=== PATIENT | male | born 1955 | race Caucasian/White ===

== ENCOUNTER → 2017-06-04 | Outpatient (CLI) | payer BC ==
--- NOTE | 2017-06-05 08:37 | CT ---
EXAMINATION TYPE: CT chest wo con DATE OF EXAM: 06/04/2017 COMPARISON: NONE HISTORY: Enlarged lymph nodes CT DLP: 873 mGycm. Automated Exposure Control for Dose Reduction was Utilized. TECHNIQUE: CT scan of the thorax is performed without IV contrast. IV contrast could not be given du e to abnormal lab values. FINDINGS: LUNGS: The lungs are grossly clear, there is no concerning parenchymal mass or nodule identified. T here is no pleural effusion or pneumothorax seen. The tracheobronchial tree is patent. MEDIASTINUM: Lack of IV contrast is noted to limit evaluation for mediastinal and especially hilar ad enopathy. There are no definitive greater than 1 cm noncalcified hilar or mediastinal lymph nodes. T here are prominent but subcentimeter calcified anterior superior mediastinal lymph nodes anterior to the aortic arch. No cardiomegaly is seen. There is small pericardial effusion anteriorly Ascending ao rta measures up to 3.5 cm in diameter. Right and left pulmonary arteries measure up to 2.6 cm in diam eter. OTHER: Small degree of bilateral gynecomastia is noted. Massive splenomegaly is present measuring 19. 5 cm long axis axial image 78. There is partial visualization of 3.7 cm low dense lesion laterally ri ght kidney likely reflecting simple cyst. Dependent density in gallbladder is consistent with small s tones and/or gallbladder sludge. IMPRESSION: Prominent Splenomegaly partially imaged. No definitive suspicious adenopathy in the thora x.
== END | disposition home or self-care (01) ==
LOC: RADCTMAIN 17:39
PROVIDERS: ATTEND Internal Medicine Hematology & Oncology
DX: R59.0 Localized enlarged lymph nodes (principal); Z88.8 Allergy status to other drugs, medicaments and biological substances
CPT/HCPCS: 36415; 71250; 82565; 84520

== ENCOUNTER 2017-10-06 12:26 | Emergency (ER) | payer BC ==
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
[2017-10-06 15:21] LABS: Anisocytosis Moderate; Basophils % (A) 0 %; Eosinophils # (A) 0.1 k/uL (0-0.7); Eosinophils % (A) 1 %; HCT 35.9 % (39.0-53.0); HGB 10.9 gm/dL (13.0-17.5); Hypochromasia Moderate; Lymphocytes # (A) 0.3 k/uL (1.0-4.8); Lymphocytes % (A) 3 %; MCH 24.6 pg (25.0-35.0); MCHC 30.2 g/dL (31.0-37.0); MCV 81.3 fL (80.0-100.0); Mean Platelet Volume 6.8; Monocytes # (A) 0.7 k/uL (0-1.0); Monocytes % (A) 6 %; Neutrophils # (A) 9.9 k/uL (1.3-7.7); Neutrophils % (A) 89 %; Platelet Count 276 k/uL (150-450); RBC 4.42 m/uL (4.30-5.90); WBC 11.1 k/uL (3.8-10.6)
[2017-10-06 15:29] LABS: Anion Gap 9 mmol/L; Blood Urea Nitrogen 47 mg/dL (9-20); Calcium 9.8 mg/dL (8.4-10.2); Carbon Dioxide 18 mmol/L (22-30); Chloride 113 mmol/L (98-107); Creatine Kinase <20 U/L (55-170); Glucose 87 mg/dL (74-99); Magnesium 2.1 mg/dL (1.6-2.3); Potassium 5.9 mmol/L (3.5-5.1); Sodium 140 mmol/L (137-145)
[2017-10-06] MEDS ORDERED: SODIUM CHLORIDE 0.9% 1,000 ML IV ONE (15:53)
[2017-10-06] MEDS ORDERED: DEXTROSE 50%-WATER 50 ML SYRINGE IVP STA (15:54)
[2017-10-06] MEDS ORDERED: INSULIN REGULAR 100 UNIT/ML VIAL IV ONE (15:54)
[2017-10-06 15:56] LABS: Poikilocytosis (M) Present
[2017-10-06 17:46] LABS: Glucose,Whole Blood 46 mg/dL (75-99)
[2017-10-06 18:04] LABS: Glucose,Whole Blood 58 mg/dL (75-99)
[2017-10-06 18:43] LABS: Glucose,Whole Blood 84 mg/dL (75-99)
[2017-10-06 18:47] VITALS: BP 144/66; PULSE 74; RESP 18
[2017-10-06 19:01] LABS: Calcium 9.4 mg/dL (8.4-10.2); Potassium 5.1 mmol/L (3.5-5.1)
[2017-10-06 19:17] VITALS: TEMP 98
== END 2017-10-06 19:16 | disposition home or self-care (01) ==
LOC: EC 12:26
DX: E87.5 Hyperkalemia (principal); M21.372 Foot drop, left foot; R61 Generalized hyperhidrosis; R25.8 Other abnormal involuntary movements; R59.0 Localized enlarged lymph nodes; R26.9 Unspecified abnormalities of gait and mobility; L90.5 Scar conditions and fibrosis of skin; R20.8 Other disturbances of skin sensation; E11.40 Type 2 diabetes mellitus with diabetic neuropathy, unspecified; Z79.4 Long term (current) use of insulin; Z79.899 Other long term (current) drug therapy; Z88.8 Allergy status to other drugs, medicaments and biological substances; Z85.72 Personal history of non-Hodgkin lymphomas; Z92.21 Personal history of antineoplastic chemotherapy; Z98.890 Other specified postprocedural states
CPT/HCPCS: 36415; 80048; 82550; 83605; 83735; 85025; 93005; 96361; 96374; 99283

== ENCOUNTER 2017-10-09 23:58 | Inpatient (IN) | payer BC ==
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
[2017-10-10 01:16] LABS: Anisocytosis Moderate; Basophils % (A) 0 %; Eosinophils # (A) 0.1 k/uL (0-0.7); Eosinophils % (A) 2 %; HCT 31.4 % (39.0-53.0); HGB 9.9 gm/dL (13.0-17.5); Hypochromasia Moderate; Lymphocytes # (A) 0.4 k/uL (1.0-4.8); Lymphocytes % (A) 6 %; MCH 25.3 pg (25.0-35.0); MCHC 31.6 g/dL (31.0-37.0); Mean Platelet Volume 7.2; Microcytosis Slight; Monocytes # (A) 0.5 k/uL (0-1.0); Monocytes % (A) 7 %; Neutrophils # (A) 5.9 k/uL (1.3-7.7); Neutrophils % (A) 83 %; Platelet Count 205 k/uL (150-450); RBC 3.92 m/uL (4.30-5.90); RDW 20.9 % (11.5-15.5); WBC 7.1 k/uL (3.8-10.6)
[2017-10-10] MEDS ORDERED: INSULIN REGULAR 100 UNIT/ML VIAL IV ONE ×2 (01:27→11:39)
[2017-10-10] MEDS ORDERED: DEXTROSE 50%-WATER 50 ML SYRINGE IVP ONE (01:27)
[2017-10-10] MEDS ORDERED: SODIUM CHLORIDE 0.9% 1,000 ML IV STA ×2 (01:27→05:17)
[2017-10-10] MEDS ORDERED: NALOXONE 0.4 MG/ML 1 ML VIAL IV PRN (01:39)
[2017-10-10 02:22] LABS: Glucose,Whole Blood 161 mg/dL (75-99)
[2017-10-10] MEDS ORDERED: ALLOPURINOL 300 MG TAB PO SCH (09:00)
[2017-10-10] MEDS: FENOFIBRATE 54 MG TAB PO SCH (09:33)
[2017-10-10] MEDS ORDERED: SODIUM BICARB 8.4% 50 ML SYR (1 MEQ/ML) IV ONE (11:39)
[2017-10-10] MEDS ORDERED: DEXTROSE 50%-WATER 50 ML SYRINGE IVP STA ×2 (11:41→18:02)
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
[2017-10-10 12:21] LABS: Appearance,Urine Clear (Clear); Bilirubin,Urine Negative (Negative); Blood,Urine Negative (Negative); Color,Urine Colorless; Glucose,Urine (UA) Negative (Negative); Ketones,Urine Negative (Negative); Leukocyte Esterase,Urine Negative (Negative); Nitrite,Urine Negative (Negative); PH, Urine 5.5 (5.0-8.0); Protein,Urine Negative (Negative); Specific Gravity,Urine 1.007 (1.001-1.035); Urobilinogen,Urine <2.0 mg/dL (<2.0)
[2017-10-10] MEDS: DEXTROSE 5% IN WATER 1,000 ML with SODIUM BICARB (1 MEQ/ML) 150 ML IV SCH (12:22)
[2017-10-10 12:30] LABS: Glucose,Whole Blood 105 mg/dL (75-99)
[2017-10-10 14:16] LABS: Glucose,Whole Blood 151 mg/dL (75-99)
--- NOTE | 2017-10-10 15:57 | US ---
EXAMINATION TYPE: US kidneys/renal and bladder DATE OF EXAM: 10/10/2017 COMPARISON: NONE CLINICAL HISTORY: danitza. Hx of lymphoma EXAM MEASUREMENTS: Right Kidney: 11.2 x 5.6 x 5.6 cm Left Kidney: 13.1 x 5.7 x 5.7 cm Right Kidney: Hydronephrosis noted = 2.4 cm Left Kidney: dilated renal pelvis = 0.9 cm Bladder: Sonolucent Bilateral Jets seen: Yes Normal Post Void Residual: Not done in portable environment. IMPRESSION: 1. Bilateral hydronephrosis, right more so than left. No etiology is identified. 2. Superior pole right renal cyst
[2017-10-10 16:03] LABS: Iron Saturation 15.66 (15.00-50.00)
[2017-10-10] MEDS ORDERED: SODIUM POLYSTYRENE SULFONATE 15 GM/60 ML BOTTLE PO STA (16:29)
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
[2017-10-10 17:51] LABS: Uric Acid 3.6 mg/dL (3.5-8.5)
[2017-10-10] MEDS ORDERED: INSULIN REGULAR 100 UNIT/ML VIAL SQ ONE (18:03)
[2017-10-10] MEDS ORDERED: SODIUM BICARB 8.4% 50 ML VIAL (1 MEQ/ML) IV STA (18:06)
[2017-10-10] MEDS ORDERED: CALCIUM CHLORIDE 100 MG/ML 10 ML SYRINGE IVP STA (18:08)
[2017-10-10] MEDS ORDERED: SODIUM BICARB 8.4% 50 ML SYR (1 MEQ/ML) IV STA (18:10)
[2017-10-10] MEDS ORDERED: CALCIUM CHLORIDE IV ONE (18:15)
[2017-10-10] MEDS ORDERED: SODIUM CHLORIDE 0.9% IV ONE (18:15)
[2017-10-10 19:00] LABS: Glucose,Whole Blood 190 mg/dL (75-99)
[2017-10-10] MEDS: ACYCLOVIR 200 MG CAP PO SCH (20:23)
[2017-10-10 20:31] LABS: Glucose,Whole Blood 73 mg/dL (75-99)
[2017-10-11] MEDS: DEXTROSE 5% IN WATER 1,000 ML with SODIUM BICARB (1 MEQ/ML) 150 ML IV SCH (05:26)
[2017-10-11 07:08] LABS: Glucose,Whole Blood 132 mg/dL (75-99)
[2017-10-11 07:39] LABS: Potassium 6.7 mmol/L (3.5-5.1)
[2017-10-11 08:06] LABS: Calcium 9.3 mg/dL (8.4-10.2); Magnesium 1.9 mg/dL (1.6-2.3)
[2017-10-11 08:26] LABS: Potassium 6.2 mmol/L (3.5-5.1)
[2017-10-11] MEDS: FENOFIBRATE 54 MG TAB PO SCH (08:42)
[2017-10-11] MEDS: ACYCLOVIR 200 MG CAP PO SCH ×2 (08:42→19:52)
[2017-10-11] MEDS: ATORVASTATIN 80 MG TAB PO SCH (08:42)
[2017-10-11] MEDS: ALLOPURINOL 300 MG TAB PO SCH (08:42)
[2017-10-11] MEDS ORDERED: SODIUM POLYSTYRENE SULFONATE 15 GM/60 ML BOTTLE PO STA ×2 (08:54)
[2017-10-11] MEDS ORDERED: INSULIN REGULAR 100 UNIT/ML VIAL IV ONE (09:04)
[2017-10-11] MEDS ORDERED: DEXTROSE 50%-WATER 50 ML SYRINGE IVP STA (09:04)
[2017-10-11] MEDS ORDERED: ALBUTEROL NEBULIZED 2.5 MG/3 ML INHALATION STA (09:07)
--- NOTE | 2017-10-11 09:37 | P.PN ---
Subjective Patient is seen in follow-up for acute kidney injury. Creatinine was 2.3 on admission and is down to 1.53 today with IV hydration. Hyperkalemia did improve with medical management and is up to 6.2 this morning. Admits to good urine output. No vomiting or diarrhea. Denies chest pain or shortness of breath. Vital signs are stable. General: The patient appeared well nourished and normally developed. HEENT: Head exam is unremarkable. Neck is without jugular venous distension. LUNGS: Lungs are clear to auscultation and percussion. Breath sounds decreased. HEART: Rate and Rhythm are regular. First and second heart sounds normal. No murmurs, rubs or gallops. ABDOMEN: Abdominal exam reveals normal bowel sounds. Non-tender and non- distended. No evidence of peritonitis. EXTREMITITES: No clubbing, cyanosis, or edema. Objective - Vital Signs Vital signs: Vital Signs Temp 97.7 F 10/11/17 05:00 Pulse 68 10/11/17 05:00 Resp 16 10/11/17 05:00 BP 99/61 10/11/17 05:00 Pulse Ox 99 10/11/17 05:00 Intake & Output 10/10/17 10/11/17 10/11/17 18:59 06:59 18:59 Other: Voiding Method Toilet Toilet # Voids 1 - Labs CBC & Chem 7: 10/10/17 00:40 10/11/17 07:12 Labs: Abnormal Lab Results - Last 24 Hours (Table) 10/10/17 10/10/17 10/10/17 Range/Units 00:40 04:16 12:15 Potassium 6.7 H* (3.5-5.1) mmol/L Chloride (98-107) mmol/L BUN (9-20) mg/dL Creatinine (0.66-1.25) mg/dL Glucose (74-99) mg/dL POC Glucose (mg/dL) 105 H (75-99) mg/dL Iron 52 L (65-175) ug/dL Ferritin 344.4 H (22.0-322.0) ng/mL 10/10/17 10/10/17 10/10/17 Range/Units 14:05 16:25 18:58 Potassium 7.0 H* (3.5-5.1) mmol/L Chloride (98-107) mmol/L BUN (9-20) mg/dL Creatinine (0.66-1.25) mg/dL Glucose (74-99) mg/dL POC Glucose (mg/dL) 151 H 190 H (75-99) mg/dL Iron (65-175) ug/dL Ferritin (22.0-322.0) ng/mL 10/10/17 10/10/17 10/11/17 Range/Units 20:26 21:05 07:07 Potassium 5.3 H (3.5-5.1) mmol/L Chloride (98-107) mmol/L BUN (9-20) mg/dL Creatinine (0.66-1.25) mg/dL Glucose (74-99) mg/dL POC Glucose (mg/dL) 73 L 132 H (75-99) mg/dL Iron (65-175) ug/dL Ferritin (22.0-322.0) ng/mL 10/11/17 Range/Units 07:12 Potassium 6.2 H* (3.5-5.1) mmol/L Chloride 111 H (98-107) mmol/L BUN 41 H (9-20) mg/dL Creatinine 1.53 H (0.66-1.25) mg/dL Glucose 107 H (74-99) mg/dL POC Glucose (mg/dL) (75-99) mg/dL Iron (65-175) ug/dL Ferritin (22.0-322.0) ng/mL Assessment and Plan Plan: Assessment: 1. Nonoliguric acute kidney injury mostly prerenal from lisinopril and Bactrim which will impair creatinine secretion raising its level. Creatinine 2.3 on admission and down to 1.5-3. He is noted to have bilateral hydronephrosis. Urinalysis is benign. 2. Hyperkalemia secondary to metabolic acidosis, lisinopril and Bactrim. Also component of obstructive uropathy. 3. Metabolic acidosis secondary to acute kidney injury. Improved. 4. Lymphoma maintained on chemotherapy at [facility]. 5. Insulin-dependent diabetes mellitus. 6. Anemia. Iron deficiency noted. Plan: Discontinue bicarbonate drip. Start normal saline at 75 mL an hour. Patient received Kayexalate this morning. I will give him 10 units of IV insulin with amp of D50 as well as 10 mg of nebulized albuterol now. Repeat potassium level this afternoon. Hold Bactrim and lisinopril for now. Ferrlecit 125 mg IV daily for 3 days. First dose today. Low potassium diet. Decreased allopurinol dose to 300 mg daily. Consult urology for hydronephrosis.
[2017-10-11 09:53] LABS: Glucose,Whole Blood 180 mg/dL (75-99)
[2017-10-11] MEDS: SODIUM CHLORIDE 0.9% 1,000 ML IV SCH (09:57)
[2017-10-11] MEDS: SODIUM FERRIC GLUCONAT-SUCROSE 125 MG in SODIUM CHLORIDE 0.9% 100 ML IVPB SCH (10:19)
[2017-10-11] MEDS: SODIUM BICARBONATE TAB 650 MG TAB PO SCH ×2 (10:19→19:53)
--- NOTE | 2017-10-11 11:17 | P.PN ---
Subjective Patient is admitted with hyperkalemia secondary to acute renal failure, Bactrim , lisinopril. Patient did not have bowel movement yesterday because of which is a potassium didn't come down. Patient will be given another dose of kayexalate along with albuterol and insulin. Patient has bilateral hydronephrosis which is not new but the senior environmental engineer recommending a urology consultation urology will be consulted. Patient does not have any significant uric acid in the blood patient may have mild competent of tumor lysis syndrome. Constitutional: Denied any fatigue denied any fever. Cardio vascular: denied any chest pain, palpitations Gastrointestinal denied any nausea vomiting Pulmonary: Denied any shortness of breath cough Neurologic denied any new focal deficits Objective - Vital Signs Vital signs: Vital Signs Temp 97.7 F 10/11/17 05:00 Pulse 68 10/11/17 05:00 Resp 16 10/11/17 05:00 BP 99/61 10/11/17 05:00 Pulse Ox 99 10/11/17 05:00 Intake & Output 10/10/17 10/11/17 10/11/17 18:59 06:59 18:59 Other: Voiding Method Toilet Toilet # Voids 1 - Exam PHYSICAL EXAMINATION: GENERAL: The patient is alert and oriented x3, not in any acute distress. Well developed, well nourished. HEENT: Pupils are round and equally reacting to light. EOMI. No scleral icterus. No conjunctival pallor. Normocephalic, atraumatic. No pharyngeal erythema. No thyromegaly. CARDIOVASCULAR: S1 and S2 present. No murmurs, rubs, or gallops. PULMONARY: Chest is clear to auscultation, no wheezing or crackles. ABDOMEN: Soft, nontender, nondistended, normoactive bowel sounds. No palpable organomegaly. MUSCULOSKELETAL: No joint swelling or deformity. EXTREMITIES: No cyanosis, clubbing, or pedal edema. NEUROLOGICAL: Gross neurological examination did not reveal any focal deficits. SKIN: No rashes. - Labs CBC & Chem 7: 10/10/17 00:40 10/11/17 07:12 Labs: Abnormal Lab Results - Last 24 Hours (Table) 10/10/17 10/10/17 10/10/17 Range/Units 00:40 04:16 12:15 Potassium 6.7 H* (3.5-5.1) mmol/L Chloride (98-107) mmol/L BUN (9-20) mg/dL Creatinine (0.66-1.25) mg/dL Glucose (74-99) mg/dL POC Glucose (mg/dL) 105 H (75-99) mg/dL Iron 52 L (65-175) ug/dL Ferritin 344.4 H (22.0-322.0) ng/mL 10/10/17 10/10/17 10/10/17 Range/Units 14:05 16:25 18:58 Potassium 7.0 H* (3.5-5.1) mmol/L Chloride (98-107) mmol/L BUN (9-20) mg/dL Creatinine (0.66-1.25) mg/dL Glucose (74-99) mg/dL POC Glucose (mg/dL) 151 H 190 H (75-99) mg/dL Iron (65-175) ug/dL Ferritin (22.0-322.0) ng/mL 10/10/17 10/10/17 10/11/17 Range/Units 20:26 21:05 07:07 Potassium 5.3 H (3.5-5.1) mmol/L Chloride (98-107) mmol/L BUN (9-20) mg/dL Creatinine (0.66-1.25) mg/dL Glucose (74-99) mg/dL POC Glucose (mg/dL) 73 L 132 H (75-99) mg/dL Iron (65-175) ug/dL Ferritin (22.0-322.0) ng/mL 10/11/17 10/11/17 Range/Units 07:12 09:49 Potassium 6.2 H* (3.5-5.1) mmol/L Chloride 111 H (98-107) mmol/L BUN 41 H (9-20) mg/dL Creatinine 1.53 H (0.66-1.25) mg/dL Glucose 107 H (74-99) mg/dL POC Glucose (mg/dL) 180 H (75-99) mg/dL Iron (65-175) ug/dL Ferritin (22.0-322.0) ng/mL Assessment and Plan Plan: -Hyperkalemia: Multifactorial secondary to Bactrim, lisinopril, acute renal failure, uric acid levels are within normal limits. Patient is on IV bicarbonate. -Renal failure: Secondary to above-mentioned medications and it is improving continue with the IV bicarbonate drip. -Bilateral hydronephrosis urology consultation. -Hyperlipidemia - non-Hodgkin's lymphoma is receiving chemotherapy with the Rituxan and bendamustine
[2017-10-11 11:27] LABS: Glucose,Whole Blood 48 mg/dL (75-99)
[2017-10-11 11:46] LABS: Glucose,Whole Blood 82 mg/dL (75-99)
[2017-10-11 17:07] LABS: Glucose,Whole Blood 166 mg/dL (75-99)
[2017-10-11 20:23] LABS: Glucose,Whole Blood 142 mg/dL (75-99)
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
[2017-10-12] MEDS: SODIUM CHLORIDE 0.9% 1,000 ML IV SCH ×3 (04:10→14:12)
[2017-10-12 07:22] LABS: Glucose,Whole Blood 119 mg/dL (75-99)
[2017-10-12 07:57] LABS: Calcium 8.9 mg/dL (8.4-10.2); Potassium 5.2 mmol/L (3.5-5.1)
[2017-10-12] MEDS: ACYCLOVIR 200 MG CAP PO SCH ×2 (08:56→20:32)
[2017-10-12] MEDS: ATORVASTATIN 80 MG TAB PO SCH (08:56)
[2017-10-12] MEDS: ALLOPURINOL 300 MG TAB PO SCH (08:56)
[2017-10-12] MEDS: SODIUM BICARBONATE TAB 650 MG TAB PO SCH ×2 (08:56→20:32)
[2017-10-12] MEDS: FENOFIBRATE 54 MG TAB PO SCH (08:56)
--- NOTE | 2017-10-12 09:10 | P.PN ---
Subjective Patient is seen in follow-up for acute kidney injury. Creatinine was 2.3 on admission and is down to 1.35 today with IV hydration. Hyperkalemia did improve with medical management and is up to 5.2 this morning. Admits to good urine output. No vomiting or diarrhea. Denies chest pain or shortness of breath. Patient is noted to have bilateral hydronephrosis related to his underlying lymphoma and is still deciding if he was to proceed with urologic intervention. Vital signs are stable. General: The patient appeared well nourished and normally developed. HEENT: Head exam is unremarkable. Neck is without jugular venous distension. LUNGS: Lungs are clear to auscultation and percussion. Breath sounds decreased. HEART: Rate and Rhythm are regular. First and second heart sounds normal. No murmurs, rubs or gallops. ABDOMEN: Abdominal exam reveals normal bowel sounds. Non-tender and non- distended. No evidence of peritonitis. EXTREMITITES: No clubbing, cyanosis, or edema. Objective - Vital Signs Vital signs: Vital Signs Temp 97.7 F 10/12/17 06:25 Pulse 60 10/12/17 06:25 Resp 16 10/12/17 06:25 BP 102/54 10/12/17 06:25 Pulse Ox 97 10/12/17 06:25 Intake & Output 10/11/17 10/12/17 10/12/17 18:59 06:59 18:59 Intake Total 625 590 Balance 625 590 Intake: Intake, IV Titration 625 Amount Sodium Chloride 0.9% 1, 525 000 ml @ 75 mls/hr IV . [id number] ISAURO Rx#:[id number] Sodium Ferric Gluconat- 100 Sucrose 125 mg In Sodium Chloride 0.9% 100 ml @ 100 mls/hr IVPB DAILY ISAURO Rx#:[id number] Oral 590 Other: Voiding Method Toilet Toilet # Voids 1 - Labs CBC & Chem 7: 10/10/17 00:40 10/12/17 07:02 Labs: Abnormal Lab Results - Last 24 Hours (Table) 10/11/17 10/11/17 10/11/17 Range/Units 09:49 11:26 17:06 Potassium (3.5-5.1) mmol/L Chloride (98-107) mmol/L Carbon Dioxide (22-30) mmol/L BUN (9-20) mg/dL Creatinine (0.66-1.25) mg/dL Glucose (74-99) mg/dL POC Glucose (mg/dL) 180 H 48 L 166 H (75-99) mg/dL 10/11/17 10/12/17 10/12/17 Range/Units 20:22 07:02 07:21 Potassium 5.2 H (3.5-5.1) mmol/L Chloride 110 H (98-107) mmol/L Carbon Dioxide 21 L (22-30) mmol/L BUN 38 H (9-20) mg/dL Creatinine 1.35 H (0.66-1.25) mg/dL Glucose 107 H (74-99) mg/dL POC Glucose (mg/dL) 142 H 119 H (75-99) mg/dL Assessment and Plan Plan: Assessment: 1. Nonoliguric acute kidney injury mostly prerenal from lisinopril and Bactrim which will impair creatinine secretion raising its level. Creatinine 2.3 on admission and down to 1.35 today. He is also noted to have bilateral hydronephrosis. Urinalysis is benign. 2. Hyperkalemia secondary to metabolic acidosis, lisinopril and Bactrim. Also component of obstructive uropathy. Improved with medical management. 3. Metabolic acidosis secondary to acute kidney injury. 4. Lymphoma maintained on chemotherapy at [facility]. 5. Insulin-dependent diabetes mellitus. 6. Anemia. Iron deficiency noted. 7. Bilateral hydronephrosis. Patient has been evaluated by urology. He is still deciding if he wants to proceed with cystoscopy and potential stent placement. Plan: Maintain normal saline at 75 mL an hour. Hold Bactrim and lisinopril for now. Ferrlecit 125 mg IV daily for 3 days. Second dose today. Low potassium diet. Decreased allopurinol dose to 300 mg daily. Maintain oral sodium bicarbonate. Repeat potassium level this afternoon.
[2017-10-12] MEDS: SODIUM FERRIC GLUCONAT-SUCROSE 125 MG in SODIUM CHLORIDE 0.9% 100 ML IVPB SCH (10:32)
[2017-10-12 11:50] LABS: Glucose,Whole Blood 88 mg/dL (75-99)
[2017-10-12 17:24] LABS: Glucose,Whole Blood 103 mg/dL (75-99)
--- NOTE | 2017-10-12 19:25 | PN ---
PROGRESS NOTE DATE OF SERVICE: 10/12/2017. This 62-year-old gentleman who was admitted with hyperkalemia as well as renal failure is being closely monitored. No chest pain. No palpitations. No fever. EXAM: Alert and oriented x3. Pulse 60, blood pressure 102/54, respirations 16, temperature 97.7, pulse ox 97% on room air, HEENT: Conjunctivae normal. NECK: No jugular venous distention. CARDIOVASCULAR: S1, S2 muffled. RESPIRATORY: Breath sounds diminished in the bases. No rhonchi. No crackles. ABDOMEN: Soft, nontender. LEGS: No edema. NERVOUS SYSTEM: Nonfocal. LABS: Sodium 139, potassium 5.8, creatinine is 1.35, improved from 2.30. ASSESSMENT: 1. Acute renal failure, possibly secondary to multifactorial medications with Bactrim and lisinopril. 2. Hyperkalemia secondary to Bactrim and lisinopril. 3. Bilateral hydronephrosis. 4. Hyperlipidemia. 5. Non-Hodgkin lymphoma. RECOMMENDATIONS AND DISCUSSION: Recommend to continue current medical management and symptomatic treatment. Otherwise, we will monitor the patient closely. The patient is contemplating between procedure at [facility] chemotherapy versus local urologist regarding the stents for hydronephrosis. Continue to monitor. Nephrology input appreciated. Further recommendations to follow. MMODL / IJN: [id number] /
[2017-10-12 20:12] LABS: Glucose,Whole Blood 191 mg/dL (75-99)
[2017-10-13] MEDS: SODIUM CHLORIDE 0.9% 1,000 ML IV SCH ×3 (04:14→21:24)
[2017-10-13 06:45] LABS: Anisocytosis Moderate; Basophils % (A) 0 %; Eosinophils # (A) 0.2 k/uL (0-0.7); Eosinophils % (A) 3 %; HCT 31.4 % (39.0-53.0); HGB 9.7 gm/dL (13.0-17.5); Hypochromasia Moderate; Lymphocytes # (A) 0.5 k/uL (1.0-4.8); Lymphocytes % (A) 9 %; MCH 25.4 pg (25.0-35.0); MCHC 30.9 g/dL (31.0-37.0); MCV 82.1 fL (80.0-100.0); Mean Platelet Volume 6.9; Monocytes # (A) 0.3 k/uL (0-1.0); Monocytes % (A) 6 %; Neutrophils # (A) 3.9 k/uL (1.3-7.7); Neutrophils % (A) 79 %; Platelet Count 152 k/uL (150-450); RBC 3.82 m/uL (4.30-5.90); RDW 21.4 % (11.5-15.5)
[2017-10-13 07:00] LABS: Glucose,Whole Blood 100 mg/dL (75-99)
[2017-10-13 07:07] LABS: Calcium 9.3 mg/dL (8.4-10.2); Potassium 5.1 mmol/L (3.5-5.1)
[2017-10-13] MEDS: SODIUM BICARBONATE TAB 650 MG TAB PO SCH ×2 (08:10→20:20)
[2017-10-13] MEDS: FENOFIBRATE 54 MG TAB PO SCH (08:10)
[2017-10-13] MEDS: ACYCLOVIR 200 MG CAP PO SCH ×2 (08:10→20:20)
[2017-10-13] MEDS: ATORVASTATIN 80 MG TAB PO SCH (08:10)
[2017-10-13] MEDS: ALLOPURINOL 300 MG TAB PO SCH (08:10)
[2017-10-13] MEDS: SODIUM FERRIC GLUCONAT-SUCROSE 125 MG in SODIUM CHLORIDE 0.9% 100 ML IVPB SCH (09:33)
[2017-10-13 11:13] LABS: Glucose,Whole Blood 92 mg/dL (75-99)
--- NOTE | 2017-10-13 12:09 | P.PN ---
Subjective Progress Note Date: 10/13/17 Principal diagnosis: This is a 62-year-old male seen in consultation because of acute kidney injury and hyperkalemia. The etiology of this is bilateral hydronephrosis secondary to lymph nodes in the retroperitoneum because of her lymphoma which is under treatment since April 2017, additionally from Bactrim, lisinopril.. His potassium and creatinine have improved with IV hydration. Currently he is awake alert oriented comfortable and denies any complaints at all. No abdominal pain no history suggestive of any prostatism. No hematuria. No back pain. No nausea vomiting diarrhea abdominal pain. Objective - Vital Signs Vital signs: Vital Signs Temp 97.7 F 10/13/17 07:15 Pulse 61 10/13/17 07:15 Resp 18 10/13/17 07:15 BP 102/57 10/13/17 07:15 Pulse Ox 99 10/13/17 07:15 Intake & Output 10/12/17 10/13/17 10/13/17 18:59 06:59 18:59 Intake Total 600 2210 Balance 600 2210 Intake: Intake, IV Titration 600 900 Amount Sodium Chloride 0.9% 1, 600 900 000 ml @ 75 mls/hr IV . [id number] ISAURO Rx#:[id number] Oral 1310 Other: Voiding Method Toilet # Voids 1 On examination is awake alert oriented comfortable HEENT exam no JVP lymphadenopathy thyromegaly neck is supple no facial asymmetry Axillae shows no lymph nodes nor in the groin. Lungs are clear to auscultation percussion good air entry bilaterally Heart sounds are unremarkable for any murmur rub gallop Abdomen soft nontender no organomegaly ascites masses no splenomegaly specially. Extremity exam was no edema Neurologically awake alert oriented - Labs CBC & Chem 7: 10/13/17 06:20 10/13/17 06:20 Labs: Abnormal Lab Results - Last 24 Hours (Table) 10/12/17 10/12/17 10/13/17 Range/Units 17:22 20:11 06:20 RBC (4.30-5.90) m/uL Hgb (13.0-17.5) gm/dL Hct (39.0-53.0) % MCHC (31.0-37.0) g/dL RDW (11.5-15.5) % Lymphocytes # (1.0-4.8) k/uL Chloride 111 H (98-107) mmol/L BUN 35 H (9-20) mg/dL Creatinine 1.30 H (0.66-1.25) mg/dL POC Glucose (mg/dL) 103 H 191 H (75-99) mg/dL 10/13/17 10/13/17 Range/Units 06:20 06:58 RBC 3.82 L (4.30-5.90) m/uL Hgb 9.7 L (13.0-17.5) gm/dL Hct 31.4 L (39.0-53.0) % MCHC 30.9 L (31.0-37.0) g/dL RDW 21.4 H (11.5-15.5) % Lymphocytes # 0.5 L (1.0-4.8) k/uL Chloride (98-107) mmol/L BUN (9-20) mg/dL Creatinine (0.66-1.25) mg/dL POC Glucose (mg/dL) 100 H (75-99) mg/dL Assessment and Plan Assessment: Depression 1. Acute kidney injury secondary to combination of lisinopril Bactrim and bilateral hydronephrosis which is likely partial as his creatinine has improved from a peak of 2.3 on 10/10/2017 to 1.3 this morning. 2. Hyperkalemia resolved. Etiology again as above. 3. History of lymphoma under the care of [facility] on chemotherapy next chemotherapy supposedly October 23 about a little more than a week from today. 4. Anemia secondary to chronic disease. Recommendation. Maintain current medications. Avoid nephrotoxic medications, Bactrim nonsteroidals. Maintain 2 g potassium diet Monitor labs. Patient will need chemotherapy to improve the lymph nodes in the retroperitoneal area is causing the hydronephrosis
--- NOTE | 2017-10-13 12:27 | P.PN ---
Subjective Progress Note Date: 10/13/17 It was in the hospital with metabolic abnormalities after his chemotherapy for his lymphoma the [facility]. The patient had a renal ultrasound identifying bilateral hydronephrosis right moderate left mild. Creatinine is coming down to 1.3 with IV hydration. He is asymptomatic. I reviewed the ultrasound. I gave the patient the option of stents versus none. Given the improvement of his creatinine I have no strong need to place a stent as he is only had 1 course lymphoma treatment and most likely this obstruction will continue to improve. He is going back to [facility] next week for another treatment. If they wish stents to be placed I will be glad to do so early can do so down there however from a urologic standpoint at this point in time I think this probably resolve as the lymphoma continues to be treated. From a urologic Standpoint he can be discharged. Objective - Vital Signs Vital signs: Vital Signs Temp 97.7 F 10/13/17 07:15 Pulse 61 10/13/17 07:15 Resp 18 10/13/17 07:15 BP 102/57 10/13/17 07:15 Pulse Ox 99 10/13/17 07:15 Intake & Output 10/12/17 10/13/17 10/13/17 18:59 06:59 18:59 Intake Total 600 2210 Balance 600 2210 Intake: Intake, IV Titration 600 900 Amount Sodium Chloride 0.9% 1, 600 900 000 ml @ 75 mls/hr IV . [id number] ISAURO Rx#:[id number] Oral 1310 Other: Voiding Method Toilet # Voids 1 - Labs CBC & Chem 7: 10/13/17 06:20 10/13/17 06:20 Labs: Abnormal Lab Results - Last 24 Hours (Table) 10/12/17 10/12/17 10/13/17 Range/Units 17:22 20:11 06:20 RBC (4.30-5.90) m/uL Hgb (13.0-17.5) gm/dL Hct (39.0-53.0) % MCHC (31.0-37.0) g/dL RDW (11.5-15.5) % Lymphocytes # (1.0-4.8) k/uL Chloride 111 H (98-107) mmol/L BUN 35 H (9-20) mg/dL Creatinine 1.30 H (0.66-1.25) mg/dL POC Glucose (mg/dL) 103 H 191 H (75-99) mg/dL 10/13/17 10/13/17 Range/Units 06:20 06:58 RBC 3.82 L (4.30-5.90) m/uL Hgb 9.7 L (13.0-17.5) gm/dL Hct 31.4 L (39.0-53.0) % MCHC 30.9 L (31.0-37.0) g/dL RDW 21.4 H (11.5-15.5) % Lymphocytes # 0.5 L (1.0-4.8) k/uL Chloride (98-107) mmol/L BUN (9-20) mg/dL Creatinine (0.66-1.25) mg/dL POC Glucose (mg/dL) 100 H (75-99) mg/dL
--- NOTE | 2017-10-13 14:59 | PN ---
PROGRESS NOTE DATE OF SERVICE: 10/13/2017 INTERVAL HISTORY: This is a 62-year-old gentleman who was admitted with acute renal failure, improving significantly. No chest pain. No palpitations. No fever. The patient also followed by Nephrology and Neurology, Dr. Cruz and Dr. Bansal is following the patient. No chest pain. No palpitations. No fever. PHYSICAL EXAM: Alert and oriented x3, pulse 61, blood pressure 100/59, respiration 18, temperature 97.7, pulse ox 98% room air. HEENT: Conjunctivae normal. NECK: No jugular venous distension. RESPIRATORY: Breaths sounds diminished at the bases, no rhonchi, no crackles. ABDOMEN: Soft, nontender. LEGS: No edema, no swelling. NERVOUS SYSTEM: No focal deficits. LABS: WBC 5, hemoglobin is 10.7, creatinine is 1.3. ASSESSMENT: 1. Acute renal failure, possibly secondary to multifactorial with medication Bactrim and lisinopril. 2. Hyperkalemia secondary to Bactrim and lisinopril. 3. Bilateral hydronephrosis. 4. Hyperlipidemia. 5. Non-Hodgkin lymphoma, on chemotherapy. RECOMMENDATIONS AND DISCUSSION: In this 62-year-old gentleman presented with multiple medical issues, at this time I recommend to continue current medication, continue with the symptomatic treatment, monitor creatinine. Closely follow with Nephrology and Urology. Further recommendations to follow. MMODL / IJN: [id number] /
[2017-10-13 17:07] LABS: Glucose,Whole Blood 109 mg/dL (75-99)
[2017-10-13 20:05] LABS: Glucose,Whole Blood 173 mg/dL (75-99)
[2017-10-13 22:49] VITALS: RESP 16
[2017-10-14 06:23] VITALS: BP 101/58; PULSE 63; TEMP 97.7
[2017-10-14 07:15] LABS: Glucose,Whole Blood 108 mg/dL (75-99)
[2017-10-14] MEDS: ACYCLOVIR 200 MG CAP PO SCH (08:27)
[2017-10-14] MEDS: SODIUM BICARBONATE TAB 650 MG TAB PO SCH (08:27)
[2017-10-14] MEDS: ALLOPURINOL 300 MG TAB PO SCH (08:28)
[2017-10-14] MEDS: FENOFIBRATE 54 MG TAB PO SCH (08:28)
[2017-10-14] MEDS: ATORVASTATIN 80 MG TAB PO SCH (08:28)
[2017-10-14 09:11] LABS: Anisocytosis Moderate; Basophils % (A) 0 %; Eosinophils # (A) 0.2 k/uL (0-0.7); Eosinophils % (A) 5 %; HCT 31.1 % (39.0-53.0); HGB 9.7 gm/dL (13.0-17.5); Hypochromasia Slight; Lymphocytes # (A) 0.3 k/uL (1.0-4.8); Lymphocytes % (A) 8 %; MCH 25.1 pg (25.0-35.0); MCHC 31.1 g/dL (31.0-37.0); MCV 80.6 fL (80.0-100.0); Mean Platelet Volume 7.1; Microcytosis Slight; Monocytes # (A) 0.2 k/uL (0-1.0); Monocytes % (A) 6 %; Neutrophils # (A) 3.1 k/uL (1.3-7.7); Neutrophils % (A) 78 %; Platelet Count 151 k/uL (150-450); RBC 3.85 m/uL (4.30-5.90); RDW 21.2 % (11.5-15.5)
--- NOTE | 2017-10-14 09:48 | P.PN ---
Subjective Principal diagnosis: This is a 62-year-old male seen in consultation because of acute kidney injury and hyperkalemia. The etiology of this is bilateral hydronephrosis secondary to lymph nodes in the retroperitoneum because of lymphoma which is under treatment since April 2017, additionally from Bactrim, lisinopril.. His potassium and creatinine have improved with IV hydration. Currently he is awake alert oriented comfortable and denies any complaints at all. No abdominal pain and no history suggestive of any prostatism. No hematuria. No back pain. No nausea vomiting diarrhea abdominal pain. Objective - Vital Signs Vital signs: Vital Signs Temp 97.7 F 10/14/17 05:00 Pulse 63 10/14/17 05:00 Resp 16 10/14/17 05:00 BP 101/58 10/14/17 05:00 Pulse Ox 100 10/14/17 05:00 Intake & Output 10/13/17 10/14/17 10/14/17 18:59 06:59 18:59 Intake Total 700 1670 Balance 700 1670 Intake: Intake, IV Titration 700 Amount Sodium Chloride 0.9% 1, 600 000 ml @ 75 mls/hr IV . [id number] ISAURO Rx#:[id number] Sodium Ferric Gluconat- 100 Sucrose 125 mg In Sodium Chloride 0.9% 100 ml @ 100 mls/hr IVPB DAILY ISAURO Rx#:[id number] Oral 1670 Other: Voiding Method Toilet Toilet Toilet # Voids 2 On examination is awake alert oriented comfortable HEENT exam no JVP neck is supple no facial asymmetry Lungs are clear to auscultation and good air entry bilaterally Heart sounds are unremarkable for any murmur rub gallop Abdomen soft nontender no organomegaly status masses no renal angle tenderness Extremity exam was no edema Neurologically awake alert oriented comfortable - Labs CBC & Chem 7: 10/14/17 08:31 10/13/17 06:20 Labs: Abnormal Lab Results - Last 24 Hours (Table) 10/13/17 10/13/17 10/14/17 Range/Units 17:05 20:03 07:14 RBC (4.30-5.90) m/uL Hgb (13.0-17.5) gm/dL Hct (39.0-53.0) % RDW (11.5-15.5) % Lymphocytes # (1.0-4.8) k/uL POC Glucose (mg/dL) 109 H 173 H 108 H (75-99) mg/dL 10/14/17 Range/Units 08:31 RBC 3.85 L (4.30-5.90) m/uL Hgb 9.7 L (13.0-17.5) gm/dL Hct 31.1 L (39.0-53.0) % RDW 21.2 H (11.5-15.5) % Lymphocytes # 0.3 L (1.0-4.8) k/uL POC Glucose (mg/dL) (75-99) mg/dL Assessment and Plan Assessment: Depression 1. Acute kidney injury secondary to combination of lisinopril, Bactrim and bilateral hydronephrosis which is likely partial as his creatinine has improved from a peak of 2.3 on 10/10/2017 to 1.3 this morning. 2. Hyperkalemia resolved. Etiology again as above. 3. History of lymphoma under the care of [facility] on chemotherapy next chemotherapy supposedly October 23 about a little more than a week from today. 4. Anemia secondary to chronic disease. Recommendation. Maintain current medications. Avoid nephrotoxic medications, Bactrim nonsteroidals. Maintain 2 g potassium diet Monitor labs. Patient will need chemotherapy to improve the lymph nodes in the retroperitoneal area is causing the hydronephrosis There was some question off stenting his ureters because of the lymph node and hydronephrosis seen but it was decided to wait for the chemotherapy to be effective therefore no ureteral stents being placed. He needs to be followed up regarding his creatinine. We will be happy to follow him in the office and is aware of this
[2017-10-14] MEDS: SODIUM FERRIC GLUCONAT-SUCROSE 125 MG in SODIUM CHLORIDE 0.9% 100 ML IVPB SCH (09:55)
[2017-10-14 10:10] LABS: Calcium 9.3 mg/dL (8.4-10.2); Potassium 5.4 mmol/L (3.5-5.1)
[2017-10-14] MEDS ORDERED: SODIUM POLYSTYRENE SULFONATE 15 GM/60 ML BOTTLE PO ONE ×2 (10:40→10:48)
[2017-10-14 11:16] LABS: Glucose,Whole Blood 96 mg/dL (75-99)
--- NOTE | 2017-10-14 21:21 | DS ---
DISCHARGE SUMMARY FINAL DIAGNOSES: 1. Acute renal failure possibly secondary to multifactorial etiology with medications Bactrim and lisinopril. 2. Hyperkalemia secondary to Bactrim and lisinopril. 3. Bilateral hydronephrosis. 4. Hyperlipidemia. 5. Non-Hodgkin's lymphoma on chemotherapy. DISCHARGE DISPOSITION: The patient is being discharged in stable condition with guarded prognosis. HISTORY OF PRESENT ILLNESS: This 62-year-old woman with a past medical history of multiple medical problems admitted with acute renal failure and multiple findings as mentioned earlier. The creatinine was 2.3, potassium 5.3, improved with creatinine improved to 1.3 at this time. Otherwise Dr. Cruz saw the patient. Recommend to follow up with [facility] and from Nephrology also the patient. Cleared the patient for discharge. On exam, vital signs are stable. Cardiovascular: S1, S2. Abdomen soft, nontender. Central nervous system: No focal deficits. DISCHARGE ADVICE AND MEDICATIONS: 1. Discharge diet is cardiac renal low-potassium. 2. Activity limited until follow up. 3. Follow up with [facility] as advised. 4. Follow up with Dr. Dang in 1-2 days. MEDICATIONS ARE: 1. Acyclovir 400 mg p.o. b.i.d. 2. Zyloprim 300 mg daily. 3. Low-fibra 54 mg daily. 4. Hydrocodone 1 tablet t.i.d. 5. Lantus 50 units subcu q.h.s. 6. Crestor 40 mg daily. 7. Sodium bicarb 650 p.o. b.i.d. 8. Hold Janumet, lisinopril Bactrim for now and re-evaluate in the outpatient setting. MMODL / IJN: [id number] /
== END 2017-10-14 12:11 | disposition home or self-care (01) | DRG 683 ==
LOC: EC 23:58 → 5MS5E 10-10 01:40 → 5ONC 10-10 14:42
PROVIDERS: ADMIT Hospitalist; ATTEND Hospitalist
DX: N17.9 Acute kidney failure, unspecified (principal); E87.2 Acidosis; C85.93 Non-Hodgkin lymphoma, unspecified, intra-abdominal lymph nodes; E87.5 Hyperkalemia; E11.9 Type 2 diabetes mellitus without complications; E78.5 Hyperlipidemia, unspecified; N13.30 Unspecified hydronephrosis; D50.9 Iron deficiency anemia, unspecified; T37.0X5A Adverse effect of sulfonamides, initial encounter; T46.4X5A Adverse effect of angiotensin-converting-enzyme inhibitors, initial encounter; Z92.21 Personal history of antineoplastic chemotherapy; Z79.01 Long term (current) use of anticoagulants; Z79.4 Long term (current) use of insulin; Z79.899 Other long term (current) drug therapy; Z88.8 Allergy status to other drugs, medicaments and biological substances
CPT/HCPCS: 36415; 76770; 80048; 81003; 82550; 82728; 83540; 83550; 83735; 84132; 84550; 85025; 93005; 94640; 96361; 96365; 96366; 96375; 96376; 99285

== ENCOUNTER 2017-11-14 10:55 | Emergency (ER) | payer BC ==
[2017-11-14 11:01] VITALS: BP 104/62; PULSE 81; RESP 18; TEMP 97.9
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
[2017-11-14 12:47] LABS: Anisocytosis Moderate; Basophils % (A) 1 %; Eosinophils # (A) 0.2 k/uL (0-0.7); Eosinophils % (A) 3 %; HCT 36.8 % (39.0-53.0); HGB 11.7 gm/dL (13.0-17.5); Hypochromasia Slight; Lymphocytes # (A) 0.2 k/uL (1.0-4.8); Lymphocytes % (A) 4 %; MCH 28.5 pg (25.0-35.0); MCHC 31.8 g/dL (31.0-37.0); MCV 89.5 fL (80.0-100.0); Monocytes # (A) 0.3 k/uL (0-1.0); Monocytes % (A) 6 %; Neutrophils # (A) 4.2 k/uL (1.3-7.7); Neutrophils % (A) 84 %; Platelet Count 154 k/uL (150-450); RBC 4.12 m/uL (4.30-5.90); RDW 22.6 % (11.5-15.5)
[2017-11-14 13:00] LABS: Albumin 4.2 g/dL (3.5-5.0); Calcium 9.7 mg/dL (8.4-10.2); Potassium 5.3 mmol/L (3.5-5.1); Total Bilirubin 0.3 mg/dL (0.2-1.3); Total Protein 7.1 g/dL (6.3-8.2)
== END 2017-11-14 13:58 | disposition home or self-care (01) ==
LOC: EC 10:55
DX: E87.5 Hyperkalemia (principal); E11.9 Type 2 diabetes mellitus without complications; Z85.72 Personal history of non-Hodgkin lymphomas; Z92.21 Personal history of antineoplastic chemotherapy; Z79.4 Long term (current) use of insulin; Z79.899 Other long term (current) drug therapy; Z88.8 Allergy status to other drugs, medicaments and biological substances
CPT/HCPCS: 36415; 80053; 85025; 93005; 99285

== ENCOUNTER → 2017-12-15 | Outpatient (CLI) | payer BC ==
[2017-12-15 11:06] LABS: Albumin 4.2 g/dL (3.5-5.0); Potassium 5.8 mmol/L (3.5-5.1); Total Bilirubin 0.4 mg/dL (0.2-1.3); Total Protein 6.8 g/dL (6.3-8.2)
== END | disposition home or self-care (01) ==
LOC: LABWHC1 09:28
PROVIDERS: ATTEND Internal Medicine
DX: C82.00 Follicular lymphoma grade I, unspecified site (principal)
CPT/HCPCS: 36415; 80053

== ENCOUNTER → 2019-09-25 | Outpatient (CLI) | payer BC ==
[2019-09-25 14:15] LABS: Basophils % (A) 1 %; Eosinophils # (A) 0.2 k/uL (0-0.7); Eosinophils % (A) 3 %; HCT 42.6 % (39.0-53.0); HGB 14.6 gm/dL (13.0-17.5); Lymphocytes # (A) 0.7 k/uL (1.0-4.8); Lymphocytes % (A) 14 %; MCH 32.5 pg (25.0-35.0); MCHC 34.2 g/dL (31.0-37.0); MCV 94.8 fL (80.0-100.0); Mean Platelet Volume 7.3; Monocytes # (A) 0.3 k/uL (0-1.0); Monocytes % (A) 6 %; Neutrophils # (A) 3.5 k/uL (1.3-7.7); Neutrophils % (A) 74 %; Platelet Count 196 k/uL (150-450); RDW 13.8 % (11.5-15.5); WBC 4.8 k/uL (3.8-10.6)
[2019-09-25 19:36] LABS: African American GFR (CKD) 66.4 (60.0-200.0); Albumin/Globulin Ratio 1.43 (1.60-3.17); Anion Gap 5.8 mmol/L (4.00-12.00); BUN/Creat Ratio 13.08 Ratio (12.00-20.00); Calcium 9.3 mg/dL (8.7-10.3); Carbon Dioxide 26.2 mmol/L (21.6-31.8); Globulin 2.8 g/dL (1.6-3.3); Non-African American GFR(CKD) 57.3 (60.0-200.0); Potassium 5.3 mmol/L (3.5-5.5); Total Bilirubin 0.6 mg/dL (0.2-1.2); Total Protein 6.8 g/dL (6.2-8.2)
[2019-09-27 13:58] LABS: T4/T8 Ratio (CD4:CD8) 0.9 (1.0-3.7)
== END | disposition home or self-care (01) ==
LOC: LABWHC1 11:46
PROVIDERS: ATTEND Internal Medicine
DX: C82.98 Follicular lymphoma, unspecified, lymph nodes of multiple sites (principal)
CPT/HCPCS: 36415; 80053; 83615; 85025; 86360

== ENCOUNTER → 2023-06-21 | Outpatient (CLI) | payer MEDICARE ==
--- NOTE | 2023-06-21 15:17 | XR ---
EXAMINATION TYPE: XR ribs RT w pa chest xray DATE OF EXAM: 06/21/2023 COMPARISON: NONE HISTORY: Pain TECHNIQUE: Single view of the chest and 4 views of the ribs are submitted. FINDINGS: The lungs are clear. No Evidence for pneumothorax. No evidence for focal contusion. Medi astinal structures are midline. Evaluation of the ribs fails to demonstrate evidence for acute displ aced rib fracture or secondary sign of rib fracture. Healed fracture right rib number 8 IMPRESSION: No acute displaced rib fracture.
== END | disposition home or self-care (01) ==
LOC: RADXRYALE 14:28
PROVIDERS: ATTEND Family Medicine
DX: S29.9XXA Unspecified injury of thorax, initial encounter (principal); R07.81 Pleurodynia